=== PATIENT | male | born 1970 | race Caucasian/White ===

== ENCOUNTER 2016-12-31 14:54 | Emergency (ER) | payer OTHER ==
--- NOTE | 2016-12-31 15:30 | ED.ADGEN ---
Adult General Chief Complaint Chief Complaint: cardiac arrest HPI HPI Patient is a 46-year-old male who presents with witnessed cardiac arrest with continuing chest compressions on ED arrival. [place] was [place] a [place] complaining of chest pain and had witnessed arrest. Patient was briefly responsive and EMS was contacted. On EMS workers arrival, the patient was in [place]. Chest compressions were immediately performed and the patient was given aggressive infield treatment including multiple courses of epinephrine and 2 attempted defibrillations which were unsuccessful. Patient had an unsuccessful intubation attempt prior to ED arrival with endotracheal tube removed prior to ED arrival and according to EMS has not had sustained spontaneous return of circulation. Patient reportedly had complaining of chest pain earlier that day and was on the way to his doctor's office at the time cardiac arrest. Review of Systems Review of Systems Review of systems unattainable due to the patient's clinical condition. Physical Exam Physical Exam Constitutional: Cyanotic above the clavicles, unresponsive, GCS 3. Ongoing chest compressions with manual ventilation via bag valve mask per EMS worker. HENT: Normocephalic, atraumatic, bilateral external ears normal, oropharynx moist, no oral exudates, nose normal. Eyes: Pupils dilated nonresponsive, conjunctiva injected. Neck: Supple, no JVD. Cardiovascular: No cardiac sounds auscultated. Lungs & Thorax: Respirations diminished, but equal, and sounds clear. Abdomen: Bowel sounds normal, soft, obesity compromising habit. Extremities: IO left lower extremity Neurologic: Responsive EKG EKG [] Radiology/Procedures Radiology/Procedures [Endotracheal intubation procedure note Consent was not obtained as this procedure was done emergently Anesthesia: None The patient was ventilated with a bag valve mask 100% FiO2 while connected to cardiac and pulse oximetry monitors with ongoing chest compressions. The patient was intubated on first attempt via the video laryngoscope with a 8.0 endotracheal tube. The tube was held in place. Capnometry, auscultation and tube fogging was used to confirm proper placement of the endotracheal tube. The tube was then secured at the lips via respiratory therapy. ] Course & Med Decision Making Course & Med Decision Making Pertinent Labs and Imaging studies reviewed. (See chart for details) [Despite aggressive resuscitation long ACLS protocols, the patient did not sustain or return of spontaneous circulation. Patient's down time was approximately 50 minutes of time the patient was pronounced. Although the cause of the patient's cardiac arrest is unknown, it appears as though the patient had chest pain and may have sustained an myocardial infarction or massive pulmonary embolus prior prior to hospital arrival.Patient's father and family member were invited back to the room and were present when the patient was pronounced. Patient's were answered and sterile manner and all resources were made available for the patient's family members. The patient's primary care physician Dr. Soto was contacted and agreed to sign the certificate if the ancillary services manager therapy does prior nontoxic. The ancillary services manager therapy will be contacted. Dragon Disclaimer Dragon Disclaimer This electronic medical record was generated, in whole or in part, using a voice recognition dictation system. CHRISTINA JULIEN DO Dec 31, 2016 15:30
== END 2016-12-31 20:28 | disposition expired ==
LOC: ER 14:54
DX: I46.9 Cardiac arrest, cause unspecified (principal)
CPT/HCPCS: 31500; 92950; 99285-25